=== PATIENT | female | born 1955 | race African-American/Black ===

== ENCOUNTER 2023-07-01 11:46 | Inpatient (IN) | payer MEDICARE, OTHER ==
[2023-06-30 20:00] VITALS: BP 122/70; TEMP 98.4; O2SAT 96
[~2023-07-01] VITALS: Ht 165.1 cm; Wt 96.6 kg
[2023-07-01 11:59] VITALS: O2SAT 96
[2023-07-01 12:30] LABS: BASOPHILS % (AUTO) 0.2 % (0.0-2.0); EOSINOPHILS # (AUTO) 0.1 K/uL (0.0-0.7); HEMATOCRIT 40 % (33-45); HEMOGLOBIN 13.3 g/dL (11.5-14.8); LYMPHOCYTES # (AUTO) 4.6 K/uL (0.8-4.8); LYMPHOCYTES % (AUTO) 64.5 % (20.0-44.0); MEAN CORPUSCULAR HEMOGLOBIN 29 PG (26.0-33.0); MEAN CORPUSCULAR HGB CONC 33 g/dl (31.0-36.0); MEAN CORPUSCULAR VOLUME 88 fL (82-100); MONOCYTES # (AUTO) 0.4 K/uL (0.1-1.30); MONOCYTES % (AUTO) 5.3 % (2.0-12.0); NEUTROPHILS # (AUTO) 2.1 K/uL (1.8-8.9); PLATELET COUNT (AUTO) 192 K/uL (150-450); RED BLOOD CELL COUNT(AUTO) 4.53 MIL/uL (4.0-5.2); RED CELL DISTRIBUTION WIDTH 14.2 % (11.5-15.0); WHITE BLOOD COUNT (AUTO) 7.2 K/uL (4.3-11.0)
[2023-07-01] MEDS ORDERED: VANCOMYCIN 1 GM in IV D5W 250 ML IV ONE (12:30)
[2023-07-01] MEDS ORDERED: PIPERACILLIN /TAZOBACTAM 3.375 G in IV D5W 50 ML IV ONE (12:30)
[2023-07-01 12:46] LABS: INR 1.01 (0.91-1.10); PARTIAL THROMBOPLASTIN TIME 27.6 SEC (24.3-34.3); PROTHROMBIN TIME 10.7 SECS (9.2-11.1)
[2023-07-01 12:50] LABS: ALBUMIN 3.3 g/dL (3.4-5.0); BILIRUBIN,DIRECT 0.1 mg/dL (0.0-0.2); BILIRUBIN,TOTAL 0.4 mg/dL (0.2-1.0); CALCIUM, SERUM 9.3 mg/dL (8.5-10.1); CREATININE 0.8 mg/dL (0.6-1.3); POTASSIUM 3.9 mmol/L (3.5-5.1); TOTAL PROTEIN, SERUM 7.7 g/dL (6.4-8.2)
[2023-07-01] MEDS ORDERED: ASPI-1169 PO (13:02)
[2023-07-01] MEDS ORDERED: HYDR25TA4 PO (13:02)
[2023-07-01] MEDS ORDERED: CRAN425C6 PO (13:02)
[2023-07-01] MEDS ORDERED: TRAM50TA2 PO (13:02)
[2023-07-01] MEDS ORDERED: OLOP2.5D12 LEFTEYE (13:02)
[2023-07-01] MEDS ORDERED: GABA-532 PO (13:02)
[2023-07-01] MEDS ORDERED: NIFE60TA2 PO (13:02)
[2023-07-01] MEDS ORDERED: NYST15PO4 TP (13:02)
[2023-07-01] MEDS ORDERED: ALBU8.5H8 IH (13:02)
[2023-07-01] MEDS ORDERED: BISA10SU11 RC (13:02)
[2023-07-01] MEDS ORDERED: CLON0.1T PO (13:02)
[2023-07-01] MEDS ORDERED: ACET-868 PO (13:02)
[2023-07-01] MEDS ORDERED: MAGN400O6 PO (13:02)
[2023-07-01] MEDS ORDERED: ATOR10TA PO (13:02)
[2023-07-01] MEDS ORDERED: DOCU-141 PO (13:02)
[2023-07-01] MEDS ORDERED: LOSA50TA39 PO (13:02)
[2023-07-01] MEDS ORDERED: NA P133E RC (13:02)
[2023-07-01] MEDS ORDERED: POLY15DR40 EACHEYE (13:02)
[2023-07-01] MEDS ORDERED: PANT40TA2 PO (13:02)
[2023-07-01] MEDS ORDERED: POLYVINYL ALCOHOL 15 ML BOTTLE EACHEYE PRN (15:30)
[2023-07-01] MEDS ORDERED: ONDANSETRON HCL/PF 4 MG/2 ML VIAL IVP PRN (15:30)
[2023-07-01 16:00] VITALS: BP 134/119; TEMP 97.7; O2SAT 99
[2023-07-01] MEDS ORDERED: ALBUTEROL FS 2.5 MG/3 ML VIAL.NEB NEB PRN (16:00)
[2023-07-01] MEDS: DOCUSATE SODIUM 100 MG CAPSULE PO SCH (17:00)
[2023-07-01] MEDS: GABAPENTIN 100 MG CAPSULE PO SCH (17:00)
[2023-07-01] MEDS: ENOXAPARIN SODIUM 40 MG/0.4 ML DISP.SYRIN SQ SCH (17:02)
[2023-07-01] MEDS: ACETAMINOPHEN 325 MG TABLET PO PRN (18:11)
[2023-07-01 19:00] VITALS: BP 138/90; TEMP 98.2; O2SAT 95
[2023-07-01] MEDS: VANCOMYCIN HCL 0.75 GM in IV D5W 250 ML IV SCH (21:29)
[2023-07-01] MEDS: CEFEPIME 2 GM in IV D5W 100 ML IV SCH (22:40)
[2023-07-01] MEDS: ATORVASTATIN 10 MG TABLET PO SCH (22:47)
[2023-07-02] MEDS: VANCOMYCIN HCL 0.75 GM in IV D5W 250 ML IV SCH ×3 (05:33→13:06)
[2023-07-02 06:36] LABS: BASOPHILS % (AUTO) 0.2 % (0.0-2.0); EOSINOPHILS # (AUTO) 0.1 K/uL (0.0-0.7); EOSINOPHILS % (AUTO) 2.2 % (0.0-6.0); HEMATOCRIT 39 % (33-45); LYMPHOCYTES # (AUTO) 3.2 K/uL (0.8-4.8); LYMPHOCYTES % (AUTO) 55.4 % (20.0-44.0); MEAN CORPUSCULAR HEMOGLOBIN 29 PG (26.0-33.0); MEAN CORPUSCULAR HGB CONC 33 g/dl (31.0-36.0); MEAN CORPUSCULAR VOLUME 88 fL (82-100); MONOCYTES # (AUTO) 0.3 K/uL (0.1-1.30); NEUTROPHILS # (AUTO) 2.1 K/uL (1.8-8.9); NEUTROPHILS % (AUTO) 36.2 % (43.0-81.0); PLATELET COUNT (AUTO) 177 K/uL (150-450); RED CELL DISTRIBUTION WIDTH 13.8 % (11.5-15.0); WHITE BLOOD COUNT (AUTO) 5.7 K/uL (4.3-11.0)
[2023-07-02 07:00] VITALS: BP 163/98; TEMP 98.4; O2SAT 97
[2023-07-02 07:15] LABS: CALCIUM, SERUM 8.6 mg/dL (8.5-10.1); CREATININE 0.8 mg/dL (0.6-1.3); MAGNESIUM 1.9 mg/dL (1.8-2.4); PHOSPHORUS 3.8 mg/dL (2.5-4.9); POTASSIUM 3.9 mmol/L (3.5-5.1)
[2023-07-02] MEDS: PANTOPRAZOLE 40 MG TABLET.DR PO SCH (07:34)
[2023-07-02] MEDS: LOSARTAN POTASSIUM 50 MG TABLET PO SCH (08:44)
[2023-07-02] MEDS: NIFEDIPINE XL 60 MG TAB.ER.24 PO SCH (08:44)
[2023-07-02] MEDS: ASPIRIN 81 MG TAB.CHEW PO SCH (08:44)
[2023-07-02] MEDS: GABAPENTIN 100 MG CAPSULE PO SCH ×2 (08:45→16:18)
[2023-07-02] MEDS: DOCUSATE SODIUM 100 MG CAPSULE PO SCH ×2 (08:45→16:18)
[2023-07-02] MEDS: HYDROCHLOROTHIAZIDE 25 MG TABLET PO SCH (08:45)
[2023-07-02] MEDS: CEFEPIME 2 GM in IV D5W 100 ML IV SCH ×2 (08:47→21:04)
[2023-07-02] MEDS: NYSTATIN TOP POWDER 15 GM BOTTLE TP SCH (08:47)
[2023-07-02] MEDS: ACETAMINOPHEN 325 MG TABLET PO PRN (09:12)
[2023-07-02] MEDS ORDERED: LIDOCAINE 1% INJ 50 ML MDV IJ ONE (12:00)
[2023-07-02] MEDS ORDERED: Z GUARD REMEDY 4 OZ OINT TP PRN (12:00)
[2023-07-02] MEDS: Z GUARD REMEDY 4 OZ OINT TP SCH (13:06)
[2023-07-02] MEDS ORDERED: CIPR-263 PO (13:37)
[2023-07-02] MEDS: ENOXAPARIN SODIUM 40 MG/0.4 ML DISP.SYRIN SQ SCH (15:36)
[2023-07-02 16:00] VITALS: BP 121/59; TEMP 98.1; O2SAT 96
[2023-07-02 19:00] VITALS: BP 120/80; TEMP 97.8; O2SAT 97
[2023-07-02] MEDS: ATORVASTATIN 10 MG TABLET PO SCH (21:14)
[2023-07-03 06:18] LABS: BASOPHILS % (AUTO) 0.2 % (0.0-2.0); EOSINOPHILS # (AUTO) 0.1 K/uL (0.0-0.7); HEMATOCRIT 39 % (33-45); HEMOGLOBIN 12.8 g/dL (11.5-14.8); LYMPHOCYTES # (AUTO) 3.5 K/uL (0.8-4.8); LYMPHOCYTES % (AUTO) 54.6 % (20.0-44.0); MEAN CORPUSCULAR HEMOGLOBIN 29 PG (26.0-33.0); MEAN CORPUSCULAR HGB CONC 33 g/dl (31.0-36.0); MEAN CORPUSCULAR VOLUME 88 fL (82-100); MONOCYTES # (AUTO) 0.4 K/uL (0.1-1.30); MONOCYTES % (AUTO) 6.6 % (2.0-12.0); NEUTROPHILS # (AUTO) 2.4 K/uL (1.8-8.9); NEUTROPHILS % (AUTO) 36.6 % (43.0-81.0); PLATELET COUNT (AUTO) 179 K/uL (150-450); WHITE BLOOD COUNT (AUTO) 6.5 K/uL (4.3-11.0)
[2023-07-03 06:47] LABS: CALCIUM, SERUM 8.6 mg/dL (8.5-10.1); CREATININE 0.9 mg/dL (0.6-1.3); MAGNESIUM 1.9 mg/dL (1.8-2.4); PHOSPHORUS 3.8 mg/dL (2.5-4.9); POTASSIUM 4.2 mmol/L (3.5-5.1)
[2023-07-03] MEDS: PANTOPRAZOLE 40 MG TABLET.DR PO SCH (07:09)
[2023-07-03 08:00] VITALS: BP 120/92; TEMP 98.4; O2SAT 98
[2023-07-03] MEDS: GABAPENTIN 100 MG CAPSULE PO SCH (08:25)
[2023-07-03] MEDS: DOCUSATE SODIUM 100 MG CAPSULE PO SCH (08:25)
[2023-07-03 08:26] VITALS: BP 120/92
[2023-07-03] MEDS: LOSARTAN POTASSIUM 50 MG TABLET PO SCH (08:26)
[2023-07-03] MEDS: ASPIRIN 81 MG TAB.CHEW PO SCH (08:26)
[2023-07-03] MEDS: HYDROCHLOROTHIAZIDE 25 MG TABLET PO SCH (08:26)
[2023-07-03] MEDS: NYSTATIN TOP POWDER 15 GM BOTTLE TP SCH (08:26)
[2023-07-03] MEDS: NIFEDIPINE XL 60 MG TAB.ER.24 PO SCH (08:26)
[2023-07-03] MEDS: Z GUARD REMEDY 4 OZ OINT TP SCH (08:28)
[2023-07-03] MEDS: CEFEPIME 2 GM in IV D5W 100 ML IV SCH (08:29)
[2023-07-03] MEDS ORDERED: VANCOMYCIN 1 GM in IV D5W 250ml IV SCH (12:00)
[2023-07-03] MEDS: ACETAMINOPHEN 325 MG TABLET PO PRN (14:27)
[2023-07-03] MEDS: ENOXAPARIN SODIUM 40 MG/0.4 ML DISP.SYRIN SQ SCH (14:33)
[2023-07-03] MEDS ORDERED: CEFEPIME 1 GM in IV D5W 50 ML IV SCH (21:00)
== END 2023-07-03 16:25 | DRG 605 ==
LOC: ER 11:50 → MED 14:45
PROVIDERS: ADMIT Nurse Practitioner Acute Care; ATTEND Nurse Practitioner Acute Care
PROC: 0J9N0ZZ Drainage of Right Lower Leg Subcutaneous Tissue and Fascia, Open Approach (ICD-10-PCS; principal; 2023-07-02)
DX: S80.11XA Contusion of right lower leg, initial encounter (principal); L03.115 Cellulitis of right lower limb; E44.1 Mild protein-calorie malnutrition; D68.59 Other primary thrombophilia; L02.415 Cutaneous abscess of right lower limb; E78.5 Hyperlipidemia, unspecified; I10 Essential (primary) hypertension; F41.9 Anxiety disorder, unspecified; F32.A Depression, unspecified; H26.9 Unspecified cataract; H11.002 Unspecified pterygium of left eye; Z91.81 History of falling; H52.4 Presbyopia; H02.836 Dermatochalasis of left eye, unspecified eyelid; Z79.82 Long term (current) use of aspirin; Z79.51 Long term (current) use of inhaled steroids; Z79.899 Other long term (current) drug therapy; E66.01 Morbid (severe) obesity due to excess calories; E88.09 Other disorders of plasma-protein metabolism, not elsewhere classified; I69.398 Other sequelae of cerebral infarction; X58.XXXA Exposure to other specified factors, initial encounter; Y92.9 Unspecified place or not applicable
CPT/HCPCS: 36415; 73590-TC; 76882; 80048-TC; 80061-TC; 80076-TC; 80202-TC; 83735-TC; 84100-TC; 85025-TC; 85652-TC; 85730-TC; 86140-TC; 87081-TC; A4223; A6253; A6403; A6407; G0378; J0692; J1650; J2543; J3370; J3490; J7040; J7060

== ENCOUNTER 2025-05-18 23:01 | Inpatient (IN) | payer MEDICARE, OTHER ==
[~2025-05-18] VITALS: Ht 160 cm; Wt 80.0 kg
[~2025-05-18 23:01] MED LIST: ACET-868 PO; ALBU8.5H8 IH; ASPI-1169 PO; ATOR10TA PO; BISA10SU11 RC; CIPR-263 PO; CLON0.1T PO; CRAN425C6 PO; DOCU-141 PO; GABA-532 PO; HYDR25TA4 PO; LOSA50TA39 PO; MAGN400O6 PO; NA P133E RC; NIFE60TA2 PO; NYST15PO4 TP; OLOP2.5D12 LEFTEYE; PANT40TA2 PO; POLY15DR40 EACHEYE; TRAM50TA2 PO
[2025-05-18 23:39] LABS: PLATELET COUNT (AUTO) 202 K/uL (150-450); RED BLOOD CELL COUNT(AUTO) 5.07 MIL/uL (4.0-5.2); RED CELL DISTRIBUTION WIDTH 14.7 % (11.5-15.0); WHITE BLOOD COUNT (AUTO) 6.3 K/uL (4.3-11.0)
[2025-05-18 23:50] LABS: SERUM AMMONIA 21 umol/L (11-32)
[2025-05-18 23:54] LABS: CALCIUM, SERUM 8.8 mg/dL (8.5-10.1); CREATININE 0.9 mg/dL (0.6-1.3); SODIUM SERUM 141 mmol/L (136-145); UREA NITROGEN, BLOOD 16 mg/dL (7-18)
[2025-05-18 23:59] LABS: ALCOHOL, BLOOD < 3 mg/dL (0-10)
[2025-05-19 00:08] LABS: APPEARANCE,URINE CLEAR (CLEAR); BLOOD, URINE NEGATIVE Ery/uL (NEGATIVE); LEUKOCYTE ESTERASE ,URINE TRACE (NEGATIVE); NITRITE, URINE NEGATIVE (NEGATIVE); UGLUCOSE NEGATIVE (NEGATIVE)
[2025-05-19 00:17] LABS: AMPHETAMINE, URINE NEGATIVE (NEGATIVE); BARBITURATE, URINE NEGATIVE (NEGATIVE); BENZODIAZEPINE, URINE NEGATIVE (NEGATIVE); CANNABINOID, URINE NEGATIVE (NEGATIVE); COCCAINE, URINE NEGATIVE (NEGATIVE); OPIATE, URINE NEGATIVE (NEGATIVE)
[2025-05-19 00:20] LABS: ADD URINE CULTURE NO; SQUAMOUS EPITHELIAL CELL,UR 0-2 /HPF (None Seen)
[2025-05-19] MEDS ORDERED: ASPIRIN 300 MG/SUPP.RECT RC ONE (00:21)
[2025-05-19] MEDS: ASPIRIN 300 MG/SUPP.RECT RC ONE (00:24)
[2025-05-19] MEDS ORDERED: Z GUARD REMEDY 4 OZ OINT TP PRN (00:30)
[2025-05-19] MEDS ORDERED: MAG HYDROX/AL HYDROX/SIMETH 30 ML UDC PO PRN (00:30)
[2025-05-19] MEDS ORDERED: ACETAMINOPHEN 325 MG TABLET PO PRN (00:30)
[2025-05-19] MEDS ORDERED: ONDANSETRON HCL/PF 4 MG/2 ML VIAL IVP PRN (00:30)
[2025-05-19] MEDS ORDERED: MAGNESIUM HYDROXIDE 30 ML UDC PO PRN (00:30)
[2025-05-19 03:15] VITALS: BP 143/58; TEMP 98.8; O2SAT 96
[2025-05-19] MEDS: IV NS 0.9% 1,000 ML IV PRN (03:57)
[2025-05-19] MEDS: PANTOPRAZOLE 40 MG TABLET.DR PO SCH (07:30)
[2025-05-19 08:00] VITALS: BP 180/84; TEMP 98.1; O2SAT 98
[2025-05-19] MEDS: DOCUSATE SODIUM 100 MG CAPSULE PO SCH (09:00)
[2025-05-19] MEDS: ASPIRIN 81 MG TAB.CHEW PO SCH (09:00)
[2025-05-19] MEDS: NIFEDIPINE XL 60 MG TAB.ER.24 PO SCH (09:00)
[2025-05-19] MEDS: HYDROCHLOROTHIAZIDE 25 MG TABLET PO SCH (09:00)
[2025-05-19] MEDS: LOSARTAN POTASSIUM 50 MG TABLET PO SCH (09:00)
[2025-05-19] MEDS: GABAPENTIN 100 MG CAPSULE PO SCH (09:00)
[2025-05-19] MEDS: POLYVINYL ALCOHOL 15 ML BOTTLE EACHEYE SCH (09:21)
[2025-05-19 11:38] LABS: PLATELET COUNT (AUTO) 184 K/uL (150-450); RED BLOOD CELL COUNT(AUTO) 4.89 MIL/uL (4.0-5.2); RED CELL DISTRIBUTION WIDTH 14.8 % (11.5-15.0); WHITE BLOOD COUNT (AUTO) 7.3 K/uL (4.3-11.0)
[2025-05-19 11:55] LABS: ASPARTATE AMINOTRANSFERASE 17.0 U/L (15-37); CALCIUM, SERUM 8.6 mg/dL (8.5-10.1); CREATININE 0.7 mg/dL (0.6-1.3); PHOSPHORUS 3.1 mg/dL (2.5-4.9); SODIUM SERUM 141.0 mmol/L (136-145); TOTAL PROTEIN, SERUM 6.7 g/dL (6.4-8.2); UREA NITROGEN, BLOOD 12.0 mg/dL (7-18)
[2025-05-19 12:00] VITALS: BP 124/78; TEMP 98.1; O2SAT 98
[2025-05-19] MEDS ORDERED: hydrALAZINE HCL IV 20 MG VIAL IV PRN (12:30)
[2025-05-19] MEDS: Magnesium 1GM/D5W 100ML PREMIX 100 ML IV SCH (13:03)
[2025-05-19 16:00] VITALS: BP 155/67; TEMP 99; O2SAT 97
[2025-05-19 20:00] VITALS: BP 110/79; TEMP 98.4; O2SAT 99
[2025-05-19] MEDS: ATORVASTATIN 10 MG TABLET PO SCH (21:04)
[2025-05-20] VITALS (7 sets, daily range): BP systolic 122–153; BP diastolic 62–110; TEMP 96.8–99; O2SAT 94–99
[2025-05-20 07:54] LABS: PLATELET COUNT (AUTO) 156 K/uL (150-450); RED BLOOD CELL COUNT(AUTO) 4.64 MIL/uL (4.0-5.2); RED CELL DISTRIBUTION WIDTH 14.5 % (11.5-15.0); WHITE BLOOD COUNT (AUTO) 5.6 K/uL (4.3-11.0)
[2025-05-20 08:11] LABS: CALCIUM, SERUM 8.3 mg/dL (8.5-10.1); CREATININE 0.6 mg/dL (0.6-1.3); PHOSPHORUS 2.4 mg/dL (2.5-4.9); SODIUM SERUM 131.0 mmol/L (136-145); UREA NITROGEN, BLOOD 12.0 mg/dL (7-18)
[2025-05-20 08:38] LABS: LDL 41.0 mg/dL (0-99)
[2025-05-20] MEDS: LOSARTAN POTASSIUM 50 MG TABLET PO SCH (09:43)
[2025-05-20] MEDS: IV NS 0.9% 1,000 ML IV PRN (10:03)
[2025-05-20] MEDS: NEUTRA PHOS 1 POWD.PACKET PO ONE (16:44)
[2025-05-20] MEDS: K PHOS NEUTRAL 250 MG TABLET PO ONE (16:45)
[2025-05-21] VITALS: BP 145/61; TEMP 98.1; O2SAT 99
[2025-05-21 04:00] VITALS: BP 145/61; TEMP 97.7; O2SAT 96
[2025-05-21 07:59] LABS: CALCIUM, SERUM 8.5 mg/dL (8.5-10.1); CREATININE 0.6 mg/dL (0.6-1.3); PHOSPHORUS 2.6 mg/dL (2.5-4.9); SODIUM SERUM 142.0 mmol/L (136-145); UREA NITROGEN, BLOOD 8.0 mg/dL (7-18)
[2025-05-21 08:00] VITALS: BP 145/88; TEMP 97.3; O2SAT 97
[2025-05-21 11:00] VITALS: BP 143/71; TEMP 97.7; O2SAT 95
[2025-05-21 15:00] VITALS: BP 158/94; TEMP 97.3; O2SAT 98
[2025-05-21 20:00] VITALS: BP 152/99; TEMP 98.6; O2SAT 97
[2025-05-22] VITALS: BP 135/92; TEMP 98.4; O2SAT 100
[2025-05-22 05:00] VITALS: BP 153/87; TEMP 98.6; O2SAT 100
[2025-05-22 08:00] VITALS: BP 150/97; TEMP 98.2; O2SAT 96
[2025-05-22 11:00] VITALS: BP 143/63; TEMP 97.3
== END 2025-05-22 16:20 | DRG 640 ==
LOC: ER 23:23 → TELE 05-19 02:30
DX: E86.0 Dehydration (principal); G93.41 Metabolic encephalopathy; I21.A1 Myocardial infarction type 2; G91.2 (Idiopathic) normal pressure hydrocephalus; D68.59 Other primary thrombophilia; I10 Essential (primary) hypertension; F03.90 Unspecified dementia, unspecified severity, without behavioral disturbance, psychotic disturbance, mood disturbance, and anxiety; E78.5 Hyperlipidemia, unspecified; E87.6 Hypokalemia; H26.9 Unspecified cataract; H11.002 Unspecified pterygium of left eye; H52.4 Presbyopia; T50.2X5A Adverse effect of carbonic-anhydrase inhibitors, benzothiadiazides and other diuretics, initial encounter; Y92.9 Unspecified place or not applicable; Z68.31 Body mass index [BMI] 31.0-31.9, adult; E66.9 Obesity, unspecified; E87.1 Hypo-osmolality and hyponatremia; Z74.01 Bed confinement status; Z86.73 Personal history of transient ischemic attack (TIA), and cerebral infarction without residual deficits; Z79.82 Long term (current) use of aspirin; Z79.51 Long term (current) use of inhaled steroids; Z79.899 Other long term (current) drug therapy
CPT/HCPCS: 36415; 70450-TC; 71045-TC; 80048-TC; 80053-TC; 80061-TC; 81001; 82140-TC; 82962-TC; 83735-TC; 84100-TC; 84443-TC; 84484-TC; 84550-TC; 85025-TC; 87081-TC; 92526; 92611; 93307-TC; A4223; G0378; G0480; J3475; J7030